=== PATIENT | female | born 1960 | race Caucasian/White ===

== ENCOUNTER 2016-02-18 22:07 | Emergency (ER) | payer OTHER ==
[2016-02-18 22:26] VITALS: TEMP 97.8; BMI 45.3
[2016-02-18 22:40] LABS: BASOPHIL 0.9 % (0-2.0); EOSINOPHIL 2.8 % (0-4.5); MCH 25.1 pg (25.7-33.7); MCHC 31.6 g/dl (32.0-36.0); MEAN CELL VOLUME 79.4 fl (80-96); MEAN PLT VOLUME 8.6 fl (7.5-11.1); PLATELET COUNT 216 K/MM3 (134-434); RDW 14.3 % (11.6-15.6); WHITE BLOOD COUNT 8.9 K/mm3 (4.0-10.0)
[2016-02-18 23:05] LABS: ALBUMIN 3.7 g/dl (3.4-5.0); ANION GAP 9 (8-16); BILIRUBIN,TOTAL 0.3 mg/dL (0.2-1.0); CALCIUM 8.5 mg/dL (8.5-10.1); CO2 24 mmol/L (21-32); CREATININE 0.9 mg/dL (0.55-1.02); GLUCOSE,RANDOM 129 mg/dL (74-106); SGOT/AST 14 U/L (15-37); SGPT/ALT 21 U/L (12-78); TOT PROT 7.2 g/dl (6.4-8.2)
[2016-02-18 23:08] LABS: ALK PHOS 78 U/L (45-117); TROPONIN I < 0.02 ng/ml (0.00-0.05)
[2016-02-18] MEDS ORDERED: FAMOTIDINE 20 MG/50 ML IVPB 50 ML IVPB ONE ×2 (23:20→23:46)
[2016-02-18] MEDS ORDERED: MAG HYDROX/AL HYDROX/SIMETH 30 ML UNIT-DOSE CUP PO ONE (23:20)
[2016-02-18 23:23] LABS: CHOLESTEROL 232 mg/dL (50-200)
[2016-02-18] MEDS ORDERED: SUCRALFATE 1 GM TABLET (FP) PO SCH (23:30)
[2016-02-18] MEDS ORDERED: SUCRALFATE 1 GM TABLET (FP) ONE (23:45)
[2016-02-18] MEDS ORDERED: MAG HYDROX/AL HYDROX/SIMETH 30 ML UNIT-DOSE CUP ONE (23:46)
--- NOTE | 2016-02-19 00:52 | PDOC ---
History of Present Illness - General History Source: Patient, Family Exam Limitations: No Limitations - History of Present Illness Initial Comments: 02/19/16 00:53 The patient is a 55 year old female, with a significant past medical history of HTN and HLD, who presents to the emergency department with abdominal pain onset today after eating a tuna sandwich today. She describes her pain as a burning sensation, localized in the epigastric region, ranging from mild to moderate, with radiation to her right shoulder. She denies any modifying factors. She reports that she had a stress test that was within normal limits. The patient denies chest pain, shortness of breath, headache and dizziness. Denies fever, chills, nausea, vomit, diarrhea and constipation. Denies dysuria, frequency, urgency and hematuria. Allergies: Oxycodone, JEFF inhibitors Past surgical history: None reported Family History: CAD, [place] (Mother) Social history: No alcohol, tobacco or drug use reported PMD - Dr. Gaetano Morales <Pierre Cruz - Last Filed: 02/19/16 01:26> - General History Source: Patient, Family Exam Limitations: No Limitations <Shon Buckley - Last Filed: 02/19/16 02:24> - General Chief Complaint: Pain, Acute Stated Complaint: ABDOMINAL PAIN Time Seen by Provider: 02/18/16 22:24 Past History <Pierre Cruz - Last Filed: 02/19/16 01:26> - Past Medical History HTN: Yes Hypercholesterolemia: Yes - Family Disease History Family Disease History: Heart Disease: Father, Mother - Immunization History Immunization Up to Date: No - Psycho/Social/Smoking Cessation Hx Anxiety: No Suicidal Ideation: No Smoking Status: No Smoking History: Never smoked Number of Cigarettes Smoked Daily: 0 Cigars Per Day: 0 Information on smoking cessation initiated: No Hx Alcohol Use: No Drug/Substance Use Hx: No Substance Use Type: None <Shon Buckley - Last Filed: 02/19/16 02:24> - Past Medical History Allergies/Adverse Reactions: Allergies Allergy/AdvReac Type Severity Reaction Status Date / Time JEFF Inhibitors Allergy Severe Cough Verified 02/18/16 22:17 oxycodone AdvReac Severe Vomiting Verified 02/18/16 22:17 Home Medications: Ambulatory Orders SUMAtriptan SUCCINATE [Imitrex] 50 mg PO DAILY PRN 06/03/13 Pantoprazole Sodium [Protonix] 40 mg PO DAILY #30 tablet. 02/19/16 Ranitidine HCl [Zantac] 150 mg PO BID PRN #14 tablet 02/19/16 Review of Systems - Review of Systems Able to Perform ROS?: Yes Comments:: 02/19/16 00:54 GENERAL/CONSTITUTIONAL: No fever or chills. No weakness. HEAD, EYES, EARS, NOSE AND THROAT: No change in vision. No ear pain or discharge. No sore throat. CARDIOVASCULAR: No chest pain or shortness of breath RESPIRATORY: No cough, wheezing, or hemoptysis. GASTROINTESTINAL: +Epigastric pain. No nausea, vomiting, diarrhea or constipation. GENITOURINARY: No dysuria, frequency, or change in urination. MUSCULOSKELETAL: No joint or muscle swelling or pain. No neck or back pain. SKIN: No rash NEUROLOGIC: No headache, vertigo, loss of consciousness, or change in strength/ sensation. ENDOCRINE: No increased thirst. No abnormal weight change HEMATOLOGIC/LYMPHATIC: No anemia, easy bleeding, or history of blood clots. ALLERGIC/IMMUNOLOGIC: No hives or skin allergy. <Pierre Cruz - Last Filed: 02/19/16 01:26> *Physical Exam - Vital Signs Last Vital Signs Temp Pulse Resp BP Pulse Ox 97.8 F 98 H 20 184/104 100 02/18/16 22:17 02/18/16 22:17 02/18/16 22:17 02/18/16 22:17 02/18/16 22:17 - Physical Exam Comments: 02/19/16 00:54 GENERAL: Awake, alert, and fully oriented, in no acute distress HEAD: No signs of trauma, normocephalic, atraumatic EYES: PERRLA, EOMI, sclera anicteric, conjunctiva clear ENT: Auricles normal inspection, hearing grossly normal, nares patent, oropharynx clear without exudates. Moist mucosa NECK: Normal ROM, supple, no lymphadenopathy, JVD, or masses LUNGS: No distress, speaks full sentences, clear to auscultation bilaterally HEART: Regular rate and rhythm, normal S1 and S2, no murmurs, rubs or gallops, peripheral pulses normal and equal bilaterally. ABDOMEN: Soft, nontender, normoactive bowel sounds. No guarding, no rebound. No masses EXTREMITIES: Normal inspection, Normal range of motion, no edema. No clubbing or cyanosis. NEUROLOGICAL: Cranial nerves II through XII grossly intact. Normal speech, normal gait, no focal sensorimotor deficits SKIN: Warm, Dry, normal turgor, no rashes or lesions noted. <Pierre Cruz - Last Filed: 02/19/16 01:26> - Vital Signs Last Vital Signs Temp Pulse Resp BP Pulse Ox 97.8 F 98 H 20 184/104 100 02/18/16 22:17 02/18/16 22:17 02/18/16 22:17 02/18/16 22:17 02/18/16 22:17 <Shon Buckley - Last Filed: 02/19/16 02:24> Heart Score/ECG Review #1 ECG reviewed & interpreted by me at: 22:15 02/19/16 00:40 NSR 97, no std/corrine, T wave flat III, normal axis, normal intervals, QTC 462 msec <Shon Buckley - Last Filed: 02/19/16 02:24> ED Treatment Course - LABORATORY CBC & Chemistry Diagram: 02/18/16 22:40 02/18/16 22:25 - ADDITIONAL ORDERS Additional order review: Laboratory Results 02/18/16 02/18/16 22:57 22:25 Sodium 138 Potassium 3.9 Chloride 105 Carbon Dioxide 24 Anion Gap 9 BUN 13 D Creatinine 0.9 D Creat Clearance w eGFR > 60 Random Glucose 129 H D Calcium 8.5 Total Bilirubin 0.3 D AST 14 L ALT 21 Alkaline Phosphatase 78 Creatine Kinase 59 Troponin I < 0.02 Total Protein 7.2 Albumin 3.7 Triglycerides 182 H Cholesterol 232 H Lipase 118 02/18/16 22:40 RBC 4.97 MCV 79.4 L MCHC 31.6 L RDW 14.3 MPV 8.6 Neutrophils % 52.0 Lymphocytes % 34.8 Monocytes % 9.5 Eosinophils % 2.8 Basophils % 0.9 - RADIOLOGY Radiograph Interpretation: 02/19/16 01:26 Abdominal ultrasound Reviewed by: Dr. Rafael Mast Impression: The liver is enlarged measuring 20.4 cm in sagittal length with increased echotexture compatible with steatosis. There is no intrahepatic biliary dilatation. No hepatic masses visualized The gallbladder is contracted. No radiopaque stones visualized. The gallbladder wall is normal in thickness measuring 2.5 mm. No pericholecystic fluid. Presence or absence of a sonographic Aguilar's sign not reported The common bile duct is within normal limits measuring 5.3 mm The right kidney is unremarkable Visualized portions of the pancreatic head and body appear grossly normal. The tail is largely obscured by overlying bowel gas The visualized portions of the abdominal aorta and IVC are unremarkable - Medications Given in the ED: ED Medications Discontinued Medications Generic Name Dose Route Start Last Admin Trade Name Freq PRN Reason Stop Dose Admin Al Hydroxide/Mg Hydroxide 30 ml 02/18/16 23:20 02/19/16 00:15 Mylanta Oral Suspension - PO 02/18/16 23:21 30 ml ONCE ONE Administration Famotidine/Sodium Chloride 50 mls @ 100 mls/hr 02/18/16 23:20 02/18/16 23:50 Pepcid 20 Mg Premixed Ivpb - IVPB 02/18/16 23:49 100 mls/hr ONCE ONE Administration <Pierre Cruz - Last Filed: 02/19/16 01:26> - LABORATORY CBC & Chemistry Diagram: 02/18/16 22:40 02/18/16 22:25 - ADDITIONAL ORDERS Additional order review: Laboratory Results 02/18/16 02/18/16 22:57 22:25 Sodium 138 Potassium 3.9 Chloride 105 Carbon Dioxide 24 Anion Gap 9 BUN 13 D Creatinine 0.9 D Creat Clearance w eGFR > 60 Random Glucose 129 H D Calcium 8.5 Total Bilirubin 0.3 D AST 14 L ALT 21 Alkaline Phosphatase 78 Creatine Kinase 59 Troponin I < 0.02 Total Protein 7.2 Albumin 3.7 Triglycerides 182 H Cholesterol 232 H Lipase 118 02/18/16 22:40 RBC 4.97 MCV 79.4 L MCHC 31.6 L RDW 14.3 MPV 8.6 Neutrophils % 52.0 Lymphocytes % 34.8 Monocytes % 9.5 Eosinophils % 2.8 Basophils % 0.9 - RADIOLOGY Radiology Studies Ordered: Category Date Time Status CHEST PA & LAT [RAD] Stat Radiology 02/19/16 00:07 Taken ABDOMEN US -LIMITED [US] Stat Ultrasound 02/19/16 23:20 Ordered - Medications Given in the ED: ED Medications Discontinued Medications Generic Name Dose Route Start Last Admin Trade Name Freq PRN Reason Stop Dose Admin Al Hydroxide/Mg Hydroxide 30 ml 02/18/16 23:20 02/19/16 00:15 Mylanta Oral Suspension - PO 02/18/16 23:21 30 ml ONCE ONE Administration Famotidine/Sodium Chloride 50 mls @ 100 mls/hr 02/18/16 23:20 02/18/16 23:50 Pepcid 20 Mg Premixed Ivpb - IVPB 02/18/16 23:49 100 mls/hr ONCE ONE Administration <Shon Buckley - Last Filed: 02/19/16 02:24> Medical Decision Making - Medical Decision Making 02/19/16 00:41 A portion of this note was documented by scribe services under my direction. I have reviewed the details of the note, within reason, and agree with the documentation with the following case summary and management plan written by me. Patient treated in the ED. Nursing notes are reviewed and incorporated into the medical decision-making. Vital signs reviewed. Peripheral IV access obtained by the nurse, laboratory studies are drawn and sent, reviewed and interpreted by myself. Vital Signs Temp Pulse Resp BP Pulse Ox 97.8 F 98 H 20 184/104 100 02/18/16 22:17 02/18/16 22:17 02/18/16 22:17 02/18/16 22:17 02/18/16 22:17 55-year-old female with history of hypertension, hyperlipidemia presents to the emergency department for epigastric discomfort. The patient reports that she ate some tuna fish and ice cream. Approximately one hour later, the patient started developing and epigastric discomfort with no radiation. No association shortness of breath, nausea, vomiting. Patient's pain was persistent and started to notice some right shoulder discomfort despite taking seltzer water. Patient came to the ER for further evaluation. She had a stress test one year ago that was negative. Denies history of gallstones. Does have a family history where the patient's aunt has had an [place] in her 60s. The pain started around noon. The ECG is normal. The history itself sounds somewhat more likely GI in nature, and likely gastritis. However, will RENETTA and send two troponins. Will trial GERD medications and reassess. Given the epigastric pain and R shoulder pain, will r/o acute martin. Reassess. 02/19/16 02:20 Chest xray reviewed, pending official radiology read. No free air or other acute findings. CBC, BMP 02/18/16 22:40 02/18/16 22:25 CMP Sodium 138 mmol/L (136-145) 02/18/16 22:25 Potassium 3.9 mmol/L (3.5-5.1) 02/18/16 22:25 Chloride 105 mmol/L (98-107) 02/18/16 22:25 Carbon Dioxide 24 mmol/L (21-32) 02/18/16 22:25 Anion Gap 9 (8-16) 02/18/16 22:25 BUN 13 mg/dL (7-18) D 02/18/16 22:25 Creatinine 0.9 mg/dL (0.55-1.02) D 02/18/16 22:25 Creat Clearance w eGFR > 60 (>60) 02/18/16 22:25 Random Glucose 129 mg/dL (74-106) H D 02/18/16 22:25 Calcium 8.5 mg/dL (8.5-10.1) 02/18/16 22:25 Total Bilirubin 0.3 mg/dL (0.2-1.0) D 02/18/16 22:25 AST 14 U/L (15-37) L 02/18/16 22:25 ALT 21 U/L (12-78) 02/18/16 22:25 Alkaline Phosphatase 78 U/L (45-117) 02/18/16 22:25 Creatine Kinase 64 IU/L (26-192) 02/19/16 01:40 Troponin I < 0.02 ng/ml (0.00-0.05) 02/19/16 01:40 Total Protein 7.2 g/dl (6.4-8.2) 02/18/16 22:25 Albumin 3.7 g/dl (3.4-5.0) 02/18/16 22:25 Triglycerides 182 mg/dL (35-160) H 02/18/16 22:57 Cholesterol 232 mg/dL (50-200) H 02/18/16 22:57 Lipase 118 U/L (73-393) 02/18/16 22:25 Trop x 2 negative. The GERD medications resolved the pain. I instructed the patient and her daughter (RN here at [facility] Yousef) that if she continues to have persistent pain, will need to consider r/o stomach perforation. However, I have low index of suspicion at this time given improvement in pain. Supportive care. Follow up with PMD. I discussed the physical exam findings, ancillary test results and final diagnoses with the patient. I answered all of the patient's questions. The patient was satisfied with the care received and felt comfortable with the discharge plan and treatment plan. The patient will call their primary care physician within 24 hours to arrange follow-up and will return to the Emergency Department with any new, persistant or worsening symptoms. <Shon Buckley - Last Filed: 02/19/16 02:24> *DC/Admit/Observation/Transfer - Attestations Scribe Attestion: 02/19/16 00:54 Documentation prepared by Pierre Cruz, acting as medical biller for Shon Buckley MD. <Pierre Cruz - Last Filed: 02/19/16 01:26> - Discharge Dispostion Admit: No <Shon Buckley - Last Filed: 02/19/16 02:24> Diagnosis at time of Disposition: GERD (gastroesophageal reflux disease) Qualifiers: Esophagitis presence: without esophagitis Qualified Code(s): K21.9 - Gastro- esophageal reflux disease without esophagitis - Discharge Dispostion Disposition: HOME Condition at time of disposition: Improved - Prescriptions Prescriptions: Pantoprazole Sodium [Protonix] 40 mg PO DAILY #30 tablet. Ranitidine HCl [Zantac] 150 mg PO BID PRN #14 tablet PRN Reason: GERD - Referrals Referrals: Gaetano Morales MD [Primary Care Provider] - - Patient Instructions Printed Discharge Instructions: DI for Gastroesophageal Reflux Disease (GERD) Additional Instructions: Take 40 mg protonix daily. Take 150 mg zantac every 12 hours as needed for additional relief. If you have uncontrollable pain or worsening pain, please return to the ER for further evaluation.
[2016-02-19] MEDS ORDERED: ACETAMINOPHEN 325 MG TABLET (FP) PO ONE (01:29)
[2016-02-19] MEDS ORDERED: ACETAMINOPHEN 325 MG TABLET (FP) ONE (02:05)
[2016-02-19 02:15] LABS: TROPONIN I < 0.02 ng/ml (0.00-0.05)
[2016-02-19] MEDS ORDERED: PANTOPRAZOLE 40 MG TABLET (FP) PO ONE (02:23)
[2016-02-19 03:52] VITALS: BP 160/73; PULSE 82
[2016-02-19 08:31] LABS: LDL CHOLESTEROL (ONLY SJRH) 162 mg/dL (5-100)
--- NOTE | 2016-02-19 12:28 | EKG ---
Test Reason : Blood Pressure : / mmHG Vent. Rate : 097 BPM Atrial Rate : 097 BPM P-R Int : 168 ms QRS Dur : 090 ms QT Int : 364 ms P-R-T Axes : 048 -03 032 degrees QTc Int : 462 ms NORMAL SINUS RHYTHM NORMAL ECG WHEN COMPARED WITH ECG OF 22-FEB-2013 02:09, NO SIGNIFICANT CHANGE WAS FOUND Confirmed by ANA MARÍA SOLER MD ([id number]) on 02/19/2016 12:28:17 PM Referred By: Confirmed By:ANA MARÍA SOLER MD
== END 2016-02-19 02:53 | disposition home or self-care (01) ==
LOC: JER 22:07
PROC: 3E033GC Introduction of Other Therapeutic Substance into Peripheral Vein, Percutaneous Approach (ICD-10-PCS; principal; 2016-02-18)
DX: K21.9 Gastro-esophageal reflux disease without esophagitis (principal); I10 Essential (primary) hypertension; E78.00 Pure hypercholesterolemia, unspecified
CPT/HCPCS: 36415; 71020-TC; 76705-TC; 80053; 80061; 82550; 83690; 83721; 84484; 85025; 93005; 93010; 99283-25

== ENCOUNTER 2016-08-15 12:56 | Emergency (ER) | payer OTHER ==
[2016-08-15 13:10] VITALS: TEMP 98.5; BMI 41.5
[2016-08-15 13:22] LABS: URINE APPEARANCE CLEAR; URINE BILIRUBIN NEGATIVE (NEGATIVE); URINE BLOOD NEGATIVE (NEGATIVE); URINE COLOR STRAW; URINE GLUCOSE (UA) NEGATIVE (NEGATIVE); URINE KETONE NEGATIVE (NEGATIVE); URINE LEUK ESTERASE NEGATIVE (NEGATIVE); URINE NITRITE NEGATIVE (NEGATIVE); URINE PROTEIN NEGATIVE (NEGATIVE); URINE UROBILINOGEN NEGATIVE E.U./dl (0.2-1.0)
--- NOTE | 2016-08-15 14:56 | PDOC ---
History of Present Illness - General Chief Complaint: Pain Stated Complaint: PAIN Time Seen by Provider: 08/15/16 13:16 History Source: Patient Exam Limitations: No Limitations - History of Present Illness Initial Comments: 08/15/16 14:06 56-year-old female presents to the emergency room with complaints of vaginal itching worsen at night for the past 2 days associated with mild dysuria and burning. Patient also stated an aching sensation to her left suprapubic area that was worse last night and has resolved significantly since ED arrival. Patient denies vaginal discharge, back pain, fever, chills, radiation of pain, recent UTI, history of ovarian cyst or fibroids. Timing/Duration: reports: intermittent Quality: reports: mild, dullness Abdominal Pain Onset Location: reports: suprapubic Pain Radiation: reports: no radiation Aggravating Factors: improves with: None Past History - Travel Traveled outside of the country in the last 30 days: No Close contact w/someone who was outside of country & ill: No - Past Medical History Allergies/Adverse Reactions: Allergies Allergy/AdvReac Type Severity Reaction Status Date / Time JEFF Inhibitors Allergy Severe Cough Verified 08/15/16 13:08 oxycodone AdvReac Severe Vomiting Verified 08/15/16 13:08 Home Medications: Ambulatory Orders SUMAtriptan SUCCINATE [Imitrex] 50 mg PO BID PRN 06/03/13 Amlodipine Besylate [Norvasc -] 5 mg PO DAILY 08/15/16 Clotrimazole [Weji-Mrfwwxor-3] 1 applic VG BID #1 cream.appl 08/15/16 Nystatin Ointment [Mycostatin Ointment -] 1 applic TP BID #1 tube 08/15/16 Diabetes: Yes (pre) HTN: Yes Hypercholesterolemia: Yes - Family Disease History Family Disease History: Heart Disease: Father, Mother - Immunization History Immunization Up to Date: No - Psycho/Social/Smoking Cessation Hx Anxiety: No Suicidal Ideation: No Smoking Status: No Smoking History: Never smoked Have you smoked in the past 12 months: No Number of Cigarettes Smoked Daily: 0 Cigars Per Day: 0 Information on smoking cessation initiated: No Hx Alcohol Use: No Drug/Substance Use Hx: No Substance Use Type: None Patient Lives Alone: No Lives with/in: spouse/SO Review of Systems - Review of Systems Able to Perform ROS?: Yes Constitutional: No: Symptoms Reported ABD/GI: Yes: Other : Yes: Burning Integumentary: Yes: Erythema, Pruritus Endocrine: No: Symptoms Reported *Physical Exam - Vital Signs Last Vital Signs Temp Pulse Resp BP Pulse Ox 98.5 F 95 H 18 151/83 100 08/15/16 13:08 08/15/16 13:08 08/15/16 13:08 08/15/16 13:08 08/15/16 13:08 - Physical Exam General Appearance: Yes: Nourished, Appropriately Dressed. No: Apparent Distress HEENT: negative: Pale Conjunctivae Female Pelvic Exam: positive: other. negative: normal external exam ( excoriation noted to the labia majora without open lesions), discharge, vaginal bleeding Gastrointestinal/Abdominal: positive: Normal Bowel Sounds, Soft. negative: Tenderness Integumentary: positive: Normal Color, Warm, Moist Neurologic: positive: Motor Strength 5/5 (ambulatory) ED Treatment Course - ADDITIONAL ORDERS Additional order review: Laboratory Results 08/15/16 13:00 Urine Color Straw Urine Appearance Clear Urine pH 6.0 Urine Protein Negative Urine Glucose (UA) Negative Urine Ketones Negative Urine Blood Negative Urine Nitrite Negative Urine Bilirubin Negative Urine Urobilinogen Negative Ur Leukocyte Esterase Negative - RADIOLOGY Radiology Studies Ordered: Category Date Time Status TRANSVAGINAL ULTRASOUND US [US] Stat Ultrasound 08/15/16 13:51 Ordered Medical Decision Making - Medical Decision Making 08/15/16 14:04 Pt here with c/o Burning with urination. Patient mentions last night had a dull pain to the left suprapubic area and mildly since arrival to the ED. Patient on exam had no point tenderness to the abdomen. Patient with likely marsha vulvovaginitis based on HPI and PE. Urinalysis will be sent if negative will also sent for an ultrasound. Patient offered medication for pain but states currently is having no discomfort. 08/15/16 16:07 Laboratory Tests 08/15/16 13:00 Urine Ketones Negative Urine Nitrite Negative Ur Leukocyte Esterase Negative Ultrasound negative for acute findings Including free fluid, and uterine fibroids or ovarian cyst. Patient will be discharged home with vaginal topical antifungal. *DC/Admit/Observation/Transfer Diagnosis at time of Disposition: Vaginitis and vulvovaginitis - Discharge Dispostion Disposition: HOME Condition at time of disposition: Good - Prescriptions Prescriptions: Clotrimazole [Cnyd-Lqtgytjc-3] 1 applic VG BID #1 cream.appl Nystatin Ointment [Mycostatin Ointment -] 1 applic TP BID #1 tube - Referrals Referrals: Yana Bahena MD [Primary Care Provider] - - Patient Instructions Printed Discharge Instructions: DI for Yeast Infection-Skin Additional Instructions: Please keep your skin clean and dry and wear cotton underwear. Please use cream as prescribed until completed. If no relief please follow-up with your BUDGET DIRECTOR or return to the emergency room.
[2016-08-15] MEDS ORDERED: NYSTATIN 100000 UNIT/GM TOPICAL OINTMENT 15 GM TUBE TP ONE (16:06)
[2016-08-15 16:23] VITALS: BP 125/69; PULSE 79
== END 2016-08-15 16:10 | disposition home or self-care (01) ==
LOC: JER 12:56
DX: B37.3 Candidiasis of vulva and vagina (principal); I10 Essential (primary) hypertension; E78.00 Pure hypercholesterolemia, unspecified; E11.9 Type 2 diabetes mellitus without complications
CPT/HCPCS: 76830-TC; 81003; 87086; 99283-25

== ENCOUNTER 2018-05-25 20:58 | Emergency (ER) | payer OTHER ==
[2018-05-25 21:02] VITALS: BP 170/79; PULSE 116; TEMP 98.9; BMI 44.4
--- NOTE | 2018-05-25 21:05 | PDOC ---
History of Present Illness - General Chief Complaint: Respiratory Stated Complaint: COLD SYMPTOMS/DIFFICULTY BREATHING Time Seen by Provider: 05/25/18 21:05 History Source: Patient - History of Present Illness Initial Comments: 05/25/18 22:01 57 year old female c/o nasal congestion, chest congestion, and wheezing for the last two days, symptoms started 1 week ago. denies fever/ chills. PMHX: hypertension Past History - Past Medical History Allergies/Adverse Reactions: Allergies Allergy/AdvReac Type Severity Reaction Status Date / Time JEFF Inhibitors Allergy Severe Cough Verified 05/25/18 21:03 oxycodone AdvReac Severe Vomiting Verified 05/25/18 21:03 Home Medications: Ambulatory Orders SUMAtriptan SUCCINATE [Imitrex] 50 mg PO BID PRN 06/03/13 Amlodipine Besylate [Norvasc -] 5 mg PO DAILY 08/15/16 Clotrimazole [Jrgr-Xrdgzwug-1] 1 applic VG BID #1 cream.appl 08/15/16 Nystatin Ointment [Mycostatin Ointment -] 1 applic TP BID #1 tube 08/15/16 Albuterol Sulfate Inhaler - [Ventolin HFA Inhaler -] 1 - 2 inh PO Q4H PRN #1 inhaler 05/25/18 Azithromycin [Zithromax 250mg Tablets -] 250 mg PO UTDICT #6 tab 05/25/18 Fluticasone Prop 0.05% Nasal [Flonase -] 1 - 2 spray NS BID #1 spray.pump Prednisone [Deltasone] 40 mg PO DAILY #8 tablet 05/25/18 COPD: No Diabetes: Yes HTN: Yes Hypercholesterolemia: Yes - Family Disease History Family Disease History: Heart Disease: Father, Mother - Immunization History Immunization Up to Date: No - Suicide/Smoking/Psychosocial Hx Smoking Status: No Smoking History: Never smoked Have you smoked in the past 12 months: No Number of Cigarettes Smoked Daily: 0 Cigars Per Day: 0 Hx Alcohol Use: No Drug/Substance Use Hx: No Substance Use Type: None Review of Systems - Review of Systems Able to Perform ROS?: Yes Is the patient limited Thai proficient: No Constitutional: No: Symptoms Reported, See HPI, Chills, Diaphoresis, Fever, Loss of Appetite, Malaise, Night Sweats, Weakness, Weight Stable, Unintentional Wgt. Loss, Unexplained wgt Loss, Other HEENTM: Yes: Nose Congestion Respiratory: Yes: Cough, Shortness of Breath, Wheezing Cardiac (ROS): No: Symptoms Reported, See HPI, Chest Pain, Edema, Irregular Heart Rate, Lightheadedness, Palpitations, Syncope, Chest Tightness, Other ABD/GI: No: Symptoms Reported, See HPI, Abdominal Distended, Abd. Pain w/ defecation, Blood Streaked Bowels, Constipated, Diarrhea, Difficulty Swallowing , Nausea, Poor Appetite, Poor Fluid Intake, Rectal Bleeding, Vomiting, Indigestion, Abdominal cramping, Tarry Stools, Other *Physical Exam - Vital Signs Last Vital Signs Temp Pulse Resp BP Pulse Ox 98.9 F 116 H 22 H 170/79 98 05/25/18 21:00 05/25/18 21:00 05/25/18 21:00 05/25/18 21:00 05/25/18 21:00 - Physical Exam General Appearance: Yes: Appropriately Dressed Respiratory/Chest: positive: Other (coarse breath sounds) Cardiovascular: positive: Regular Rate Gastrointestinal/Abdominal: positive: Normal Bowel Sounds, Soft. negative: Tender Extremity: positive: Normal Capillary Refill, Normal Inspection, Normal Range of Motion Integumentary: positive: Normal Color, Dry, Warm Neurologic: positive: Fully Oriented, Alert Progress Note - Progress Note Progress Note: A: acute bronchitis P: xray: neg duoneb prednisone azithromycin flonase *DC/Admit/Observation/Transfer Diagnosis at time of Disposition: Bronchitis - Discharge Dispostion Disposition: HOME - Prescriptions Prescriptions: Albuterol Sulfate Inhaler - [Ventolin HFA Inhaler -] 1 - 2 inh PO Q4H PRN #1 inhaler PRN Reason: Cough Azithromycin [Zithromax 250mg Tablets -] 250 mg PO UTDICT #6 tab Fluticasone Prop 0.05% Nasal [Flonase -] 1 - 2 spray NS BID #1 spray.pump Prednisone [Deltasone] 40 mg PO DAILY #8 tablet - Referrals - Patient Instructions Printed Discharge Instructions: DI for Acute Bronchitis Additional Instructions: Drink plenty of fluids Take prednisone starting tomorrow evening Your first dose of azithromycin was given in the ER.. Take the next dose tomorrow evening as well. Use Flonase as directed Use albuterol every 4-6 hours as needed for wheezing Follow-up with your doctor as soon as possible. - Post Discharge Activity Forms/Work/School Notes: Back to Work
[2018-05-25] MEDS ORDERED: ALBUTEROL SO4 2.5/IPRATROPIUM 0.5 INH SOL 3 ML VIAL.NEB. NEB ONE ×2 (21:09→21:29)
[2018-05-25] MEDS ORDERED: predniSONE 20 MG TABLET (UD) PO ONE (21:58)
[2018-05-25] MEDS ORDERED: AZITHROMYCIN 500 MG TABLET PO ONE (21:58)
[2018-05-25] MEDS ORDERED: predniSONE 20 MG TABLET (UD) ONE (22:03)
[2018-05-25] MEDS ORDERED: AZITHROMYCIN 250 MG TABLET ONE (22:03)
== END 2018-05-25 22:10 | disposition home or self-care (01) ==
LOC: JERFT 20:58
PROC: 3E0F7GC Introduction of Other Therapeutic Substance into Respiratory Tract, Via Natural or Artificial Opening (ICD-10-PCS; principal; 2018-05-25)
DX: J20.9 Acute bronchitis, unspecified (principal)
CPT/HCPCS: 71046-TC-FY; 99281-25

== ENCOUNTER 2018-08-28 07:51 | Emergency (ER) | payer OTHER ==
[2018-08-28 07:57] VITALS: TEMP 97.6; BMI 43.4
--- NOTE | 2018-08-28 08:08 | PDOC ---
History of Present Illness - General Chief Complaint: Lightheaded Stated Complaint: Lightheaded Time Seen by Provider: 08/28/18 08:00 History Source: Patient - History of Present Illness Initial Comments: 08/28/18 08:10 The patient is a 58 year old female with a PMH of migraines and hypertension who presents to our ED c/o acute onset of nausea and dizziness (beck is spinning) . Patient states when she woke up this morning around 7 a.m. she was diaphoretic and her symptoms started shortly thereafter and have persisted since that time. Symptoms are worse when lying supine. No h/o previous similar symptoms. No vomiting as well as no chest pain, lightheadedness, palpitations. H/o abnormal stress testing 2 years previous. Patient reports she did spend time in the sun and 100 degree heat yesterday. Allergy: JEFF-I, Oxycodone Surgical: R thumb cyst removal Social: lifetime non-smoker, denies other toxic habits PMD: Dr. Alcides Charles As per EMR, no previous evaluations for similar symptoms in our ED. Past History - Past Medical History Allergies/Adverse Reactions: Allergies Allergy/AdvReac Type Severity Reaction Status Date / Time JEFF Inhibitors Allergy Severe Cough Verified 08/28/18 07:53 oxycodone AdvReac Severe Vomiting Verified 08/28/18 07:53 Home Medications: Ambulatory Orders SUMAtriptan SUCCINATE [Imitrex] 50 mg PO BID PRN 06/03/13 Amlodipine Besylate [Norvasc -] 5 mg PO DAILY 08/15/16 Nystatin Ointment [Mycostatin Ointment -] 1 applic TP BID #1 tube 08/15/16 Albuterol Sulfate Inhaler - [Ventolin HFA Inhaler -] 1 - 2 inh PO Q4H PRN #1 inhaler 05/25/18 Fluticasone Prop 0.05% Nasal [Flonase -] 1 - 2 spray NS BID #1 spray.pump Prednisone [Deltasone] 40 mg PO DAILY #8 tablet 05/25/18 Meclizine HCl [Antivert -] 12.5 mg PO TID PRN #21 tablet 08/28/18 COPD: No Diabetes: Yes HTN: Yes Hypercholesterolemia: Yes - Family Disease History Family Disease History: Heart Disease: Father, Mother - Immunization History Immunization Up to Date: No - Suicide/Smoking/Psychosocial Hx Smoking Status: No Smoking History: Never smoked Have you smoked in the past 12 months: No Number of Cigarettes Smoked Daily: 0 Cigars Per Day: 0 Hx Alcohol Use: No Drug/Substance Use Hx: No Substance Use Type: None Review of Systems - Review of Systems Constitutional: No: Chills, Fever HEENTM: No: Recent change in vision Respiratory: No: Cough, Shortness of Breath Cardiac (ROS): No: Chest Pain, Lightheadedness, Palpitations, Syncope ABD/GI: Yes: Nausea. No: Constipated, Diarrhea, Vomiting, Abdominal cramping : No: Burning, Dysuria *Physical Exam - Vital Signs Last Vital Signs Temp Pulse Resp BP Pulse Ox 97.6 F 86 18 160/76 97 08/28/18 07:55 08/28/18 07:55 08/28/18 07:55 08/28/18 07:55 08/28/18 07:55 - Physical Exam General Appearance: Yes: Nourished, Appropriately Dressed HEENT: positive: Normal Voice, Hearing Grossly Normal Neck: positive: Trachea midline, Supple Respiratory/Chest: positive: Lungs Clear, Normal Breath Sounds. negative: Labored Respiration, Rapid RR, Crackles, Wheezing Cardiovascular: positive: Regular Rate, S1, S2, Systolic Murmur. negative: Edema Vascular Pulses: Dorsalis-Pedis (R): 2+, Doralis-Pedis (L): 2+ Gastrointestinal/Abdominal: positive: Normal Bowel Sounds, Soft Integumentary: positive: Normal Color, Dry, Warm Neurologic: positive: telephonic case manager II-XII NML intact, Fully Oriented, Other (Intact cerebellar function including finger to nose, rapid alternating movement; normal gait, increased in nausea w/Xavier Hallpike) Heart Score/ECG Review - ECG Impressions Comment:: 08/28/18 08:54 NSR HR 82, normal intervals, no deviations, no DEJUAN/STD/TWI - non ischemic EKG ED Treatment Course - LABORATORY CBC & Chemistry Diagram: 08/28/18 08:30 08/28/18 08:30 Medical Decision Making - Medical Decision Making 08/28/18 08:26 58 year old female with acute onset of nausea and vertigo this morning VS unremarkable Xavier-Hallpike w/o nystagmus but worsening vertigo, cerebellar testing intact Low clinical suspicion for posterior cerbellar stroke, will evaluate for ME ( diaphoretic h/o abnormal stress testing, RF of HTN, obesity, nausea as anginal equivalent) with EKG, Troponin x1. Trial Meclizine for symptomatic improvement. 08/28/18 08:54 EKG w/o ischemic change as documented in EKG section of EMR 08/28/18 09:09 Patient reassessed @ bedside, IV fluids hanging. VSS 08/28/18 09:11 Troponin (-) x1 08/28/18 09:36 CBC unremarkable Patient reassessed @ bedside VSS Decreased severity of symptoms when laying supine s/p Meclizine Will discharge home with Meclizine prescription, return precautions, PMD follow- up and neurology referral should her vertigo persist. I discussed the physical exam findings, ancillary test results and final diagnoses with the patient. I answered all of the patient's questions. The patient was satisfied with the care received and felt comfortable with the discharge plan and treatment plan. The patient will return to the Emergency Department with any new, persistent or worsening symptoms. *DC/Admit/Observation/Transfer Diagnosis at time of Disposition: Dizziness, Nausea - Discharge Dispostion Disposition: HOME Condition at time of disposition: Good Decision to Admit order: No - Prescriptions Prescriptions: Meclizine HCl [Antivert -] 12.5 mg PO TID PRN #21 tablet PRN Reason: Dizziness - Referrals Referrals: Yana Bahena MD [Primary Care Provider] - Sridhar Calderon MD [Staff Physician] - Jennifer Chavez MD [Staff Physician] - - Patient Instructions Printed Discharge Instructions: DI for Vertigo, DI for Benign Paroxysmal Positional Vertigo Additional Instructions: Please make a follow-up appointment with your primary care doctor in the next one week for further evaluation. We have also provided a referral to a neurologist should your dizziness persist. You can see one of the doctors we listed or call your insurance company for a list of doctors. We have sent a prescription for dizziness medication to your pharmacy. Please take as needed. Return to the Emergency Department for any new/worsening/concerning symptoms. - Post Discharge Activity
[2018-08-28] MEDS ORDERED: ONDANSETRON 4 MG/2 ML VIAL IVPUSH ONE (08:25)
[2018-08-28] MEDS ORDERED: MECLIZINE HCL 12.5 MG TABLET PO ONE (08:25)
[2018-08-28] MEDS ORDERED: MECLIZINE HCL 12.5 MG TABLET ONE (08:30)
[2018-08-28] MEDS ORDERED: ONDANSETRON 4 MG/2 ML VIAL ONE (08:31)
[2018-08-28] MEDS ORDERED: SODIUM CHLORIDE 0.9% 500 ML INFUS.BAG IV ONE (08:43)
--- NOTE | 2018-08-28 08:55 | PDOC ---
Attending Attestation - Resident Resident Name: JulianCadence - ED Attending Attestation I have performed the following: I have examined & evaluated the patient, The case was reviewed & discussed with the resident, I agree w/resident's findings & plan - HPI HPI: 08/28/18 08:53 The patient is a 58 year old female with a PMH of migraines and hypertension who presents to our ED with 1 day of vertigo and dizziness, nausea. no sx of vertigo previously. able to ambulate exacerbated by head turning and movements. - Physicial Exam PE: 08/28/18 08:54 Alert, oriented appropriately. EOMI, PERRL, no nystagmus, CN II-XII grossly intact. Strength prox and distally 5/5 throughout. Sensation grossly intact to light touch. KURTZ x4. No cerebellar signs, no dysmetria, bilateral finger to nose and heel to howard equal and symmetric. Speech clear. no murmur, RRR, CTAB, no respiratory distress Abdomen obese, nontender WWP, no peripheral edema. 08/28/18 09:23 08/28/18 09:23 - Medical Decision Making 08/28/18 08:54 See HPI for details. Prior notes reviewed, including admissions, discharges and consultations. Vital signs reviewed, wnl. Vital Signs Temp Pulse Resp BP Pulse Ox 97.6 F 86 18 160/76 99 08/28/18 07:55 08/28/18 07:55 08/28/18 07:55 08/28/18 07:55 08/28/18 08:13 laboratory results and imaging reviewed, basic labs and lytes wnl, Cardiac panel_neg, reassuring EKG normal sinus rhythm 82 bpm, no interval abnormalities, narrow QRS, ST and T wave segments and morphology normal. Nonspecific T wave abnormalities ED course -interventions: meclizine, IVF, reassess feels much improved, no ataxia, gait stable. no focal neuro deficits to suggest central vertigo, defer imaging CT at this time Pt to be discharged in stable condition. Patient and family made aware of clinical impression, treatment recommendations and disposition plan, return precautions discussed (including but not limited to new or persistent/worsening symptoms, pain, fevers, or signs of infection, chest pain, respiratory distress , inability to tolerate oral intake, dehydration, syncope, or neurologic changes ). Follow up with PMD and/or neuro specialist as recommended, follow up information provided, take medications as instructed for duration of time. continue with supportive care, avoid triggers and precipitants. All questions answered to patient's satisfaction and expressed understanding and comfort with this. At the time of discharge, the patient is alert, clinically improved, tolerating po and verbalizes understanding of instructions, satisfied with the care received and felt comfortable with the plan. Patient does not suffer from an acute life-threatening medical condition at this time and is safe for outpatient follow-up. 08/28/18 09:04 08/28/18 09:22 Heart Score/ECG Review #1 ECG reviewed & interpreted by me at: 08:35 General ECG Interpretation: Sinus Rhythm, Normal Rate, Normal Intervals Compared to previous ECG there are: No significant change 08/28/18 09:05 EKG normal sinus rhythm 82 bpm, no interval abnormalities, narrow QRS, ST and T wave segments and morphology normal. Nonspecific T wave abnormalities
[2018-08-28 09:04] VITALS: BP 138/66; PULSE 78
[2018-08-28 09:10] LABS: ALBUMIN 4.1 g/dl (3.4-5.0); ALK PHOS 99 U/L (45-117); ANION GAP 8 MMOL/L (8-16); BILIRUBIN,TOTAL 0.3 mg/dL (0.2-1); BLOOD UREA NITROGEN 14.8 mg/dL (7-18); CALCIUM 9.3 mg/dL (8.5-10.1); CHLORIDE 104 mmol/L (98-107); CO2 29 mmol/L (21-32); CREATININE 0.7 mg/dL (0.55-1.3); GLUCOSE,RANDOM 131 mg/dL (74-106); POTASSIUM 3.8 mmol/L (3.5-5.1); SGOT/AST 22 U/L (15-37); SGPT/ALT 37 U/L (13-61); SODIUM 141 mmol/L (136-145); TOT PROT 7.6 g/dl (6.4-8.2)
[2018-08-28 09:14] LABS: BASO % 0.7 % (0-2.0); EOS % 2.7 % (0-4.5); HEMATOCRIT 38.6 % (32.4-45.2); HEMOGLOBIN 12.7 GM/dL (10.7-15.3); LYMPH % 40.7 % (8-40); MCH 26.2 pg (25.7-33.7); MCHC 32.9 g/dl (32.0-36.0); MEAN CELL VOLUME 79.5 fl (80-96); MEAN PLT VOLUME 9.3 fl (7.5-11.1); MONO % 9.3 % (3.8-10.2); NEUT % 46.6 % (42.8-82.8); PLATELET COUNT 197 K/MM3 (134-434); RBC 4.86 M/mm3 (3.60-5.2); WHITE BLOOD COUNT 8.1 K/mm3 (4.0-10.0)
--- NOTE | 2018-08-28 17:27 | EKG ---
Test Reason : Blood Pressure : / mmHG Vent. Rate : 082 BPM Atrial Rate : 082 BPM P-R Int : 174 ms QRS Dur : 094 ms QT Int : 398 ms P-R-T Axes : 055 003 028 degrees QTc Int : 464 ms NORMAL SINUS RHYTHM NORMAL ECG WHEN COMPARED WITH ECG OF 18-FEB-2016 22:12, NO SIGNIFICANT CHANGE WAS FOUND Confirmed by LARRY NGUYEN MD ([id number]) on 08/28/2018 5:27:38 PM Referred By: Confirmed By:LARRY NGUYEN MD
== END 2018-08-28 10:00 | disposition home or self-care (01) ==
LOC: JER 07:51
PROC: 3E033GC Introduction of Other Therapeutic Substance into Peripheral Vein, Percutaneous Approach (ICD-10-PCS; principal; 2018-08-28)
PROC: 3E0337Z Introduction of Electrolytic and Water Balance Substance into Peripheral Vein, Percutaneous Approach (ICD-10-PCS; 2018-08-28)
DX: R42 Dizziness and giddiness (principal); R11.0 Nausea; I10 Essential (primary) hypertension; E11.9 Type 2 diabetes mellitus without complications; E78.00 Pure hypercholesterolemia, unspecified
CPT/HCPCS: 36415; 71045-TC-FY; 80053; 82550; 83880; 84484; 85025; 93005; 93010; 96361; 96374; 99284-25

== ENCOUNTER 2019-09-16 16:15 | Emergency (ER) | payer OTHER ==
--- NOTE | 2019-09-16 16:22 | PDOC ---
History of Present Illness - General Stated Complaint: COVID TESTING Time Seen by Provider: 09/16/19 16:16 History Source: Patient - History of Present Illness Timing/Duration: other Past History - Medical History Allergies/Adverse Reactions: Allergies Allergy/AdvReac Type Severity Reaction Status Date / Time JEFF Inhibitors Allergy Severe Cough Verified 08/28/18 07:53 oxycodone AdvReac Severe Vomiting Verified 08/28/18 07:53 Home Medications: Ambulatory Orders SUMAtriptan SUCCINATE [Imitrex] 50 mg PO BID PRN 06/03/13 Amlodipine Besylate [Norvasc -] 5 mg PO DAILY 08/15/16 Nystatin Ointment [Mycostatin Ointment -] 1 applic TP BID #1 tube 08/15/16 Albuterol Sulfate Inhaler - [Ventolin HFA Inhaler -] 1 - 2 inh PO Q4H PRN #1 inhaler 05/25/18 Fluticasone Prop 0.05% Nasal [Flonase -] 1 - 2 spray NS BID #1 spray.pump 05/25/18 predniSONE [Deltasone] 40 mg PO DAILY #8 tablet 05/25/18 Meclizine HCl [Antivert -] 12.5 mg PO TID PRN #21 tablet 08/28/18 COPD: No Diabetes: Yes HTN: Yes Hypercholesterolemia: Yes - Immunization History Immunization Up to Date: No - Psycho-Social/Smoking History Smoking Status: No Smoking History: Never smoked Have you smoked in the past 12 months: No Number of Cigarettes Smoked Daily: 0 Cigars Per Day: 0 Review of Systems - Review of Systems Constitutional: No: Chills, Fever Respiratory: No: Cough, Shortness of Breath Cardiac (ROS): No: Chest Pain *Physical Exam - Physical Exam General Appearance: Yes: Appropriately Dressed. No: Apparent Distress HEENT: positive: Normal Voice Neck: positive: Supple Respiratory/Chest: negative: Respiratory Distress Integumentary: positive: Dry, Warm Neurologic: positive: Fully Oriented, Alert, Normal Mood/Affect Medical Decision Making - Medical Decision Making 09/16/19 16:17 59 yo F, h/o HTN, HLD, here for covid testing as was in close contact with an individual who attended a wedding where multiple individuals became infected w/ covid. Pt herself has no symptoms see exam Asx covid testing due to exposure Stable and well nahid Covid PCR sent -to quarantine till results as +exposure Discharge - Discharge Information Problems reviewed: Yes Clinical Impression/Diagnosis: COVID-19 ruled out Condition: Good Disposition: HOME - Follow up/Referral - Patient Discharge Instructions Patient Printed Discharge Instructions: [facility]-Coronavirus Instructions Additional Instructions: Stay home until covid results come back in 1-2 days - Post Discharge Activity
[2019-09-16 16:25] VITALS: BP 134/73; PULSE 76; TEMP 98.3; BMI 28.3
== END 2019-09-16 16:53 | disposition home or self-care (01) ==
LOC: JERFT 16:15 → JER 16:15 → JERFT 16:53
DX: Z20.828 Contact with and (suspected) exposure to other viral communicable diseases (principal)
CPT/HCPCS: 99282-25; U0003

== ENCOUNTER → 2019-12-26 | Day surgery (SDC) | payer OTHER ==
[2019-12-29 10:09] LABS: THYROID STIM IMMUNOGLOBULIN <0.10 IU/L (0.00-0.55)
== END | disposition home or self-care (01) ==
LOC: EDSTATUS 09:57 → JRADIR 10:29 → JLAB 10:29
PROVIDERS: ATTEND Internal Medicine Endocrinology, Diabetes & Metabolism
PROC: 0G9K3ZX Drainage of Thyroid Gland, Percutaneous Approach, Diagnostic (ICD-10-PCS; principal; 2019-12-26)
DX: E04.1 Nontoxic single thyroid nodule (principal)
CPT/HCPCS: 36415; 76942; 84439; 84443; 84445; 86376; 88173; 88305-TC

== ENCOUNTER 2020-01-10 16:24 | Emergency (ER) | payer OTHER | END 2020-01-10 16:53 | disposition home or self-care (01) | LOC: JVIRT 16:24 | DX: Z03.818 Encounter for observation for suspected exposure to other biological agents ruled out (principal) | CPT/HCPCS: C9803; G2012-GT; U0003 ==

== ENCOUNTER 2020-03-20 11:16 | Emergency (ER) | payer OTHER ==
[2020-03-20 11:30] VITALS: BP 132/62; PULSE 68; TEMP 98; BMI 39.6
[2020-03-20 12:24] LABS: BASO % 1.1 % (0-2.0); EOS % 2.3 % (0-4.5); HEMATOCRIT 37.9 % (32.4-45.2); HEMOGLOBIN 12.6 GM/dL (10.7-15.3); LYMPH % 38.5 % (8-40); MCH 27.3 pg (25.7-33.7); MCHC 33.3 g/dl (32.0-36.0); MEAN PLT VOLUME 8.6 fl (7.5-11.1); NEUT % 48.1 % (42.8-82.8); PLATELET COUNT 232 K/MM3 (134-434); RBC 4.63 M/mm3 (3.60-5.2); RDW 14.2 % (11.6-15.6); WHITE BLOOD COUNT 5.1 K/mm3 (4.0-10.0)
[2020-03-20 12:42] LABS: POTASSIUM 3.9 mmol/L (3.5-5.1)
[2020-03-20 12:44] LABS: ALBUMIN 3.9 g/dl (3.4-5.0); CALCIUM 8.9 mg/dL (8.5-10.1)
[2020-03-20 12:45] LABS: BLOOD UREA NITROGEN 9.8 mg/dL (7-18)
[2020-03-20 12:48] LABS: CREATININE 0.7 mg/dL (0.55-1.3)
[2020-03-20 12:49] LABS: BILIRUBIN,TOTAL 0.4 mg/dL (0.2-1); TOT PROT 7.2 g/dl (6.4-8.2)
[2020-03-20 13:52] LABS: EPI CELLS 6 /uL (0-25.1); HYALINE CASTS 0 /uL (0-3.1); PH,URINE 6.5 (5.0-8.0); URINE APPEARANCE CLEAR; URINE BACTERIA 36 /uL (0-1359); URINE BILIRUBIN NEGATIVE (NEGATIVE); URINE COLOR YELLOW; URINE GLUCOSE (UA) NEGATIVE (NEGATIVE); URINE KETONE NEGATIVE (NEGATIVE); URINE LEUK ESTERASE NEGATIVE (NEGATIVE); URINE NITRITE NEGATIVE (NEGATIVE); URINE PROTEIN NEGATIVE (NEGATIVE); URINE RBC 9 /uL (0-23.9); URINE UROBILINOGEN 0.2 mg/dL (0.2-1.0); URINE WBC 7 /uL (0-25.8)
== END 2020-03-20 14:20 | disposition home or self-care (01) ==
LOC: JER 11:16 → JERFT 11:16
DX: N95.0 Postmenopausal bleeding (principal); R31.9 Hematuria, unspecified
CPT/HCPCS: 76775-TC; 76830-TC; 76856-TC; 80053; 81003; 84439; 84443; 85025; 99285-25

== ENCOUNTER 2020-06-07 19:08 | Emergency (ER) | payer OTHER ==
[2020-06-07] MEDS ORDERED: SODIUM CHLORIDE 1,000 ML IV STA (19:13)
[2020-06-07 19:15] VITALS: PULSE 71; TEMP 97.9; BMI 41.5
[2020-06-07 19:41] LABS: BASO % 0.9 % (0-2.0); EOS % 2.4 % (0-4.5); HEMOGLOBIN 13.3 GM/dL (10.7-15.3); LYMPH % 40.4 % (8-40); MCH 27.6 pg (25.7-33.7); MCHC 33.2 g/dl (32.0-36.0); MEAN CELL VOLUME 83.2 fl (80-96); MONO % 9.4 % (3.8-10.2); NEUT % 46.9 % (42.8-82.8); PLATELET COUNT 176 K/MM3 (134-434); RBC 4.81 M/mm3 (3.60-5.2); WHITE BLOOD COUNT 6.4 K/mm3 (4.0-10.0)
[2020-06-07] MEDS: ACETAMINOPHEN 1000 MG/100 ML VIAL (NON FORMULARY) IVPB ONE ×2 (19:58→20:24)
[2020-06-07 20:01] LABS: PH,URINE 5.5 (5.0-8.0); URINE APPEARANCE CLEAR; URINE BILIRUBIN NEGATIVE (NEGATIVE); URINE COLOR YELLOW; URINE GLUCOSE (UA) NEGATIVE (NEGATIVE); URINE KETONE NEGATIVE (NEGATIVE); URINE LEUK ESTERASE NEGATIVE (NEGATIVE); URINE NITRITE NEGATIVE (NEGATIVE); URINE PROTEIN NEGATIVE (NEGATIVE); URINE UROBILINOGEN 0.2 mg/dL (0.2-1.0)
[2020-06-07 20:07] LABS: INR 1.08 (0.83-1.09)
[2020-06-07 20:16] LABS: ALBUMIN 4.2 g/dl (3.4-5.0); CALCIUM 9.1 mg/dL (8.5-10.1)
[2020-06-07 20:20] LABS: CREATININE 0.7 mg/dL (0.55-1.3)
[2020-06-07 20:21] LABS: BILIRUBIN,TOTAL 0.6 mg/dL (0.2-1); TOT PROT 7.6 g/dl (6.4-8.2)
[2020-06-07] MEDS ORDERED: ACETAMINOPHEN INJECTION 100 ML IVPB ONE (20:21)
[2020-06-07 20:30] LABS: BLOOD UREA NITROGEN 9.1 mg/dL (7-18)
[2020-06-07] MEDS ORDERED: BACITRACIN 15 GM TUBE TOPICAL OINTMENT ONE (20:34)
[2020-06-07 20:39] VITALS: BP 137/77
== END 2020-06-07 21:02 | disposition home or self-care (01) ==
LOC: JERFT 19:08
PROC: 3E0333Z Introduction of Anti-inflammatory into Peripheral Vein, Percutaneous Approach (ICD-10-PCS; principal; 2020-06-07)
DX: S09.90XA Unspecified injury of head, initial encounter (principal)
CPT/HCPCS: 36415; 70450-TC; 72125-TC; 80053; 81003; 82962; 85025; 85610; 87086; 93005; 93010; 96374; 99285-25; J0131

== ENCOUNTER 2020-07-01 10:46 | Emergency (ER) | payer OTHER ==
[2020-07-02 05:07] LABS: SARS-CoV-2 NAA Not Detected (Not Detected)
== END 2020-07-01 13:59 | disposition home or self-care (01) ==
LOC: JVIRT 10:46
DX: Z20.822 Contact with and (suspected) exposure to COVID-19 (principal)
CPT/HCPCS: C9803; G2251-GT; Q3014-GT; U0003; U0005

== ENCOUNTER 2020-10-27 09:55 | Emergency (ER) | payer OTHER ==
[2020-10-28 07:07] LABS: SARS-CoV-2 NAA Not Detected (Not Detected)
== END 2020-10-27 10:15 | disposition home or self-care (01) ==
LOC: JVIRT 09:55
DX: Z11.52 Encounter for screening for COVID-19 (principal)
CPT/HCPCS: C9803; Q3014-GT; U0003; U0005

== ENCOUNTER 2021-02-13 10:21 | Emergency (ER) | payer OTHER | END 2021-02-13 10:27 | disposition home or self-care (01) | LOC: JVIRT 10:21 | DX: Z11.52 Encounter for screening for COVID-19 (principal) | CPT/HCPCS: C9803-CS; Q3014-GT; U0003; U0005 ==

== ENCOUNTER 2021-04-05 04:39 | Emergency (ER) | payer OTHER ==
[2021-04-05 05:26] VITALS: BMI 41.0
[2021-04-05] MEDS ORDERED: ONDANSETRON 4 MG/2 ML VIAL IVPUSH ONE (05:44)
[2021-04-05] MEDS ORDERED: MAG HYDROX/AL HYDROX/SIMETH 30 ML UNIT-DOSE CUP PO ONE (05:44)
[2021-04-05] MEDS ORDERED: SODIUM CHLORIDE 1,000 ML IV STA (05:44)
[2021-04-05] MEDS ORDERED: FAMOTIDINE 20 MG/50 ML IVPB 20 MG/50 ML MG IVPB ONE ×2 (05:44→05:53)
[2021-04-05] MEDS ORDERED: ACETAMINOPHEN 1000 MG/100 ML BAG IVPB ONE (05:44)
[2021-04-05] MEDS ORDERED: ACETAMINOPHEN INJECTION 100 ML IVPB ONE (05:52)
[2021-04-05] MEDS ORDERED: MAG HYDROX/AL HYDROX/SIMETH 30 ML UNIT-DOSE CUP ONE (05:52)
[2021-04-05] MEDS ORDERED: ONDANSETRON 4 MG/2 ML VIAL ONE (05:53)
[2021-04-05] MEDS ORDERED: LIDOCAINE VISCOUS 2% ORAL/TOP 15 ML UNIT-DOSE CUP MM ONE (06:57)
[2021-04-05] MEDS ORDERED: LIDOCAINE VISCOUS 2% ORAL/TOP 15 ML UNIT-DOSE CUP ONE (07:00)
[2021-04-05 07:30] LABS: BASO % 1.1 % (0-2.0); EOS % 2.5 % (0-4.5); HEMOGLOBIN 12.6 GM/dL (10.7-15.3); LYMPH % 31.1 % (8-40); MCH 26.9 pg (25.7-33.7); MCHC 33.1 g/dl (32.0-36.0); MEAN CELL VOLUME 81.2 fl (80-96); MEAN PLT VOLUME 9.2 fl (7.5-11.1); MONO % 9.9 % (3.8-10.2); NEUT % 55.4 % (42.8-82.8); PLATELET COUNT 226 10^3/uL (134-434); RBC 4.68 M/mm3 (3.60-5.2); RDW 13.6 % (11.6-15.6); WHITE BLOOD COUNT 6.3 K/mm3 (4.0-10.0)
[2021-04-05 07:45] LABS: INR 1.02 (0.83-1.09); PROTHROMBIN TIME (PATIENT) 11.7 SEC (9.7-13.0)
[2021-04-05 07:51] LABS: BLOOD UREA NITROGEN 12.6 mg/dL (7-18); CALCIUM 9.6 mg/dL (8.5-10.1)
[2021-04-05 07:53] LABS: ALBUMIN 4.2 g/dl (3.4-5.0); MAGNESIUM 2.2 mg/dL (1.8-2.4)
[2021-04-05 07:55] LABS: CREATININE 0.8 mg/dL (0.55-1.3)
[2021-04-05 07:56] LABS: BILIRUBIN,TOTAL 0.5 mg/dL (0.2-1); TOT PROT 7.5 g/dl (6.4-8.2)
[2021-04-05 09:27] VITALS: BP 127/75; PULSE 63
== END 2021-04-05 09:48 | disposition home or self-care (01) ==
LOC: JER 04:39
PROC: 3E0333Z Introduction of Anti-inflammatory into Peripheral Vein, Percutaneous Approach (ICD-10-PCS; principal; 2021-04-05)
PROC: 3E033GC Introduction of Other Therapeutic Substance into Peripheral Vein, Percutaneous Approach (ICD-10-PCS; 2021-04-05)
PROC: 3E033GC Introduction of Other Therapeutic Substance into Peripheral Vein, Percutaneous Approach (ICD-10-PCS; 2021-04-05)
DX: R10.13 Epigastric pain (principal)
CPT/HCPCS: 36415; 71046-TC-FY; 76705-TC; 80053; 82550; 83690; 83735; 84484; 85025; 85610; 85730; 93005; 93010; 96361; 96374; 96375; 99285-25

== ENCOUNTER 2021-07-01 04:35 | Day surgery (SDC) | payer OTHER ==
[2021-07-01 08:09] VITALS: BMI 40.6
[2021-07-01 09:48] VITALS: TEMP 98
[2021-07-01 10:12] VITALS: BP 142/76; PULSE 67
== END 2021-07-01 10:21 | disposition home or self-care (01) ==
LOC: JASU-ENDO 04:35
PROVIDERS: ATTEND Internal Medicine Gastroenterology
PROC: 0DB78ZX Excision of Stomach, Pylorus, Via Natural or Artificial Opening Endoscopic, Diagnostic (ICD-10-PCS; 2021-07-01)
PROC: 0DB98ZX Excision of Duodenum, Via Natural or Artificial Opening Endoscopic, Diagnostic (ICD-10-PCS; principal; 2021-07-01 09:30)
DX: K29.80 Duodenitis without bleeding (principal); K29.50 Unspecified chronic gastritis without bleeding; I10 Essential (primary) hypertension; E11.9 Type 2 diabetes mellitus without complications; Z79.84 Long term (current) use of oral hypoglycemic drugs
CPT/HCPCS: 82962; 88305-TC; 88342-TC

== ENCOUNTER 2022-05-19 12:34 | Emergency (ER) | payer OTHER ==
[2022-05-19 12:41] VITALS: BP 146/73; PULSE 82; RESP 18; BMI 38.7
[2022-05-19 12:45] VITALS: TEMP 98.3
[2022-05-19] MEDS ORDERED: SODIUM CHLORIDE FOR INHALATION 3 ML VIAL.NEB IH ONE (12:47)
[2022-05-19] MEDS ORDERED: SODIUM CHLORIDE NASAL SPRAY 44 ML BOTTLE NS ONE (13:00)
[2022-05-19] MEDS ORDERED: SODIUM CHLORIDE 0.9% 500 ML INFUS.BAG IV ONE (13:01)
[2022-05-19 13:26] LABS: HEMATOCRIT 37.2 % (32.4-45.2); HEMOGLOBIN 12.8 GM/dL (10.7-15.3); MCH 27.5 pg (25.7-33.7); MCHC 34.4 g/dl (32.0-36.0); MEAN CELL VOLUME 79.9 fl (80-96); MEAN PLT VOLUME 8.9 fl (7.5-11.1); PLATELET COUNT 167 10^3/uL (134-434); RBC 4.66 M/mm3 (3.60-5.2); RDW 13.9 % (11.6-15.6); WHITE BLOOD COUNT 3.9 K/mm3 (4.0-10.0)
[2022-05-19 13:54] LABS: ALBUMIN 3.9 g/dl (3.4-5.0); BLOOD UREA NITROGEN 7.2 mg/dL (7-18); CALCIUM 9.1 mg/dL (8.5-10.1)
[2022-05-19 13:57] LABS: CREATININE 0.7 mg/dL (0.55-1.3)
[2022-05-19 13:59] LABS: BILIRUBIN,TOTAL 0.5 mg/dL (0.2-1); TOT PROT 7.4 g/dl (6.4-8.2)
[2022-05-19] MEDS ORDERED: KETOROLAC TROMETHAMINE 15 MG/ML VIAL IVPUSH ONE (15:06)
[2022-05-19] MEDS ORDERED: MAG HYDROX/AL HYDROX/SIMETH -MYLANTA- ORAL SUSPENSION PO ONE (15:06)
[2022-05-19] MEDS ORDERED: KETOROLAC TROMETHAMINE 15 MG/ML VIAL ONE (15:17)
[2022-05-19] MEDS ORDERED: MAG HYDROX/AL HYDROX/SIMETH 30 ML UNIT-DOSE CUP ONE (15:18)
[2022-05-19 15:44] LABS: URINE APPEARANCE CLEAR; URINE BILIRUBIN NEGATIVE (NEGATIVE); URINE COLOR YELLOW; URINE GLUCOSE (UA) NEGATIVE (NEGATIVE); URINE KETONE NEGATIVE (NEGATIVE); URINE LEUK ESTERASE NEGATIVE (NEGATIVE); URINE NITRITE NEGATIVE (NEGATIVE); URINE PROTEIN NEGATIVE (NEGATIVE); URINE UROBILINOGEN 0.2 mg/dL (0.2-1.0)
== END 2022-05-19 17:10 | disposition home or self-care (01) ==
LOC: JERFT 12:34
PROC: 3E0333Z Introduction of Anti-inflammatory into Peripheral Vein, Percutaneous Approach (ICD-10-PCS; principal; 2022-05-19)
DX: U07.1 COVID-19 (principal)
CPT/HCPCS: 0241U-QW; 36415; 80053; 81003; 84484; 85027; 93005; 93010; 99284-25